=== PATIENT | female | born 1960 | race Caucasian/White ===

== ENCOUNTER 2016-11-15 17:49 | Emergency (ER) | payer MEDICARE ==
[~2016-11-15] VITALS: Ht 157.5 cm; Wt 79.4 kg
[2016-11-15 17:54] VITALS: BP 174/83
[2016-11-15] MEDS ORDERED: IBUPROFEN 600 MG TABLET. PO ONE (18:15)
--- NOTE | 2016-11-15 18:18 | PHYS DOC ---
Past Medical History Past Medical History: CHF, Diabetes-Type II, High Cholesterol, Hypertension, [place] Past Surgical History: Cholecystectomy, Coronary Bypass Surgery, Hysterectomy, Knee Replacement Alcohol Use: Rarely Drug Use: None Adult General Chief Complaint Chief Complaint: FOOT INJURY PAIN HPI HPI Patient is a 56 year old presents emergency department stating that she woke up this morning with her left foot hurting. Patient states she did not injury the foot. She states she has sharp pain with numbness and tingling. Patient is able to play with a good steady gait. She states that she has not taken anything for pain and discomfort. Review of Systems Review of Systems Constitutional: Denies fever or chills [] Eyes: Denies change in visual acuity, redness, or eye pain [] HENT: Denies nasal congestion or sore throat [] Respiratory: Denies cough or shortness of breath [] Cardiovascular: No additional information not addressed in HPI [] GI: Denies abdominal pain, nausea, vomiting, bloody stools or diarrhea [] : Denies dysuria or hematuria [] Musculoskeletal: Denies back pain. C/o left foot pain Integument: Denies rash or skin lesions [] Neurologic: Denies headache, focal weakness or sensory changes [] Current Medications Current Medications Current Medications Medications (Trade) Dose Ordered Sig/Gabi Start Time Stop Time Status Last Admin Dose Admin Ibuprofen (Motrin) 600 mg 1X ONCE 11/15/16 18:15 11/15/16 18:16 DC 11/15/16 18:12 600 MG Allergies Allergies Allergies Coded Allergies Type Severity Reaction Last Updated Verified Sulfa (Sulfonamide Antibiotics) Allergy Intermediate 01/06/16 Yes ciprofloxacin Allergy Intermediate 01/06/16 Yes nitrofurantoin Allergy Intermediate 01/06/16 Yes Physical Exam Physical Exam Constitutional: Well developed, well nourished, no acute distress, non-toxic appearance. [] HENT: Normocephalic, atraumatic, bilateral external ears normal, oropharynx moist, no oral exudates, nose normal. [] Eyes: PERRLA, EOMI, conjunctiva normal, no discharge. [] Neck: Normal range of motion, no tenderness, supple, no stridor. [] Cardiovascular:Heart rate regular rhythm, Lungs & Thorax: no respiratory distress Skin: Warm, dry, no erythema, no rash. [] Back: No tenderness Extremities: Distal left metatarsal tenderness, no cyanosis, no clubbing, ROM intact, no edema. No bruising or discoloration noted. Patient is able to move the toes without difficulty. Good sensation noted. Cap refill brisk less than 2 seconds. Slight swelling noted. Neurologic: Alert and oriented X 3, normal motor function, normal sensory function, no focal deficits noted. [] Psychologic: Affect normal, judgement normal, mood normal. [] Current Patient Data Vital Signs Vital Signs Date Time Temp Pulse Resp B/P Pulse Ox O2 Delivery O2 Flow Rate FiO2 11/15/16 17:54 97.9 93 18 95 Room Air 97.9 Lab Values Laboratory Tests Test 11/15/16 18:08 Uric Acid 7.7mg/dL (2.6-6.0) H EKG EKG [] Radiology/Procedures Radiology/Procedures [] Course & Med Decision Making Course & Med Decision Making Pertinent Labs and Imaging studies reviewed. (See chart for details) X-rays were negative for any bony abnormalities. Your uric acid was elevated at 7.7. Shins for nonsteroidal anti-inflammatories to help with pain and discomfort. Elevation as much as possible. Follow-up with your primary care physician in the next 5-7 days. Return back to emergency prior signs symptoms of become worse. [] Dragon Disclaimer Dragon Disclaimer This electronic medical record was generated, in whole or in part, using a voice recognition dictation system. Departure Departure Impression: Primary Impression: Foot pain Disposition: HOME, SELF-CARE Condition: STABLE Referrals: DOROTHY ALBERT (PCP) Patient Instructions: Foot Sprain-Brief, Gout, [id number] Additional Instructions: Activity as tolerated. Medications as prescribed. Elevation as much as possible. Follow-up through primary care physician next 5-7 days. Return back to emergency prior signs symptoms of become worse. Scripts Naproxen 500 Mg Tablet1 Tab PO TID #60 TAB Prov:ANETTE RAYGOZA APRN 11/15/16 ANETTE RAYGOZA APRN Nov 15, 2016 18:18
[2016-11-15] MEDS ORDERED: NAPR500T3 PO (19:11)
--- NOTE | 2016-11-16 08:09 | RAD ---
Indication plantar foot pain. No history of trauma. AP oblique and lateral views of the left foot were obtained. No acute or significant bony finding is seen.
== END 2016-11-15 19:19 | disposition home or self-care (01) ==
LOC: ER 17:49
DX: M79.672 Pain in left foot (principal); R22.42 Localized swelling, mass and lump, left lower limb; R20.0 Anesthesia of skin; R20.2 Paresthesia of skin; I11.0 Hypertensive heart disease with heart failure; I50.9 Heart failure, unspecified; E11.9 Type 2 diabetes mellitus without complications; E78.00 Pure hypercholesterolemia, unspecified; I25.2 Old myocardial infarction; Z96.659 Presence of unspecified artificial knee joint; Z95.1 Presence of aortocoronary bypass graft; Z88.1 Allergy status to other antibiotic agents; Z88.2 Allergy status to sulfonamides; Z88.8 Allergy status to other drugs, medicaments and biological substances
CPT/HCPCS: 36415; 73630; 84550; 99285-25

== ENCOUNTER 2016-12-10 17:53 | Emergency (ER) | payer MEDICARE ==
[~2016-12-10] VITALS: Ht 157.5 cm; Wt 86.2 kg
[~2016-12-10 17:53] MED LIST: NAPR500T3 PO
[2016-12-10] MEDS ORDERED: MECLIZINE HCL 12.5 MG TABLET. PO ONE (19:30)
--- NOTE | 2016-12-10 19:43 | PHYS DOC ---
Past Medical History Past Medical History: CHF, Diabetes-Type II, High Cholesterol, Hypertension, [place] Past Surgical History: Cholecystectomy, Coronary Bypass Surgery, Hysterectomy, Knee Replacement, Other Additional Past Surgical Histo: rhinoplasty Alcohol Use: Rarely Drug Use: None Adult General Chief Complaint Chief Complaint: MULTIPLE COMPLAINTS [facility] HPI Patient is a 56 year old female who presents with some intermittent mild to moderate dizziness, left ear discomfort/ringing at times, and popping in her neck for the past 2-3 weeks. She had the ear irrigated and was placed on some medicine for decongestant. Denies any nausea vomiting chest pain or shortness of breath. Denies any blurry vision at this time. Denies any previous history of stroke or headache injury. Review of Systems Review of Systems Constitutional: Denies fever or chills [] Eyes: Denies change in visual acuity, redness, or eye pain [] HENT: Denies nasal congestion or sore throat [] Respiratory: Denies cough or shortness of breath [] Cardiovascular: No additional information not addressed in HPI [] GI: Denies abdominal pain, nausea, vomiting, bloody stools or diarrhea [] : Denies dysuria or hematuria [] Musculoskeletal: Denies back pain or joint pain [] Integument: Denies rash or skin lesions [] Neurologic: Denies headache, focal weakness or sensory changes [] Endocrine: Denies polyuria or polydipsia [] All review systems are negative except noted in the history of present illness Current Medications Current Medications Current Medications Medications (Trade) Dose Ordered Sig/Gabi Start Time Stop Time Status Last Admin Dose Admin Info (Do NOT chart on this entry -- for MONITORING) 1 each PRN DAILY PRN 12/10/16 19:45 12/12/16 19:44 Iohexol (Omnipaque 300 Mg/ml) 55 ml 1X ONCE 12/10/16 19:45 12/10/16 19:46 DC 12/10/16 20:15 60 ML Meclizine HCl (Antivert) 25 mg 1X ONCE 12/10/16 19:30 12/10/16 19:31 DC 12/10/16 19:26 25 MG Allergies Allergies Allergies Coded Allergies Type Severity Reaction Last Updated Verified Sulfa (Sulfonamide Antibiotics) Allergy Intermediate 01/06/16 Yes ciprofloxacin Allergy Intermediate 01/06/16 Yes nitrofurantoin Allergy Intermediate 01/06/16 Yes Physical Exam Physical Exam Constitutional: Well developed, well nourished, no acute distress, non-toxic appearance. [] HENT: Normocephalic, atraumatic, bilateral external ears normal, oropharynx moist, no oral exudates, nose normal. [TMs are normal external auditory canals were normal without swollen] Eyes: PERRLA, EOMI, conjunctiva normal, no discharge. [No nystagmus] Neck: Normal range of motion, no tenderness, supple, no stridor. [No midline tenderness] Cardiovascular:Heart rate regular rhythm, no murmur [] Lungs & Thorax: Bilateral breath sounds clear to auscultation [] Abdomen: Bowel sounds normal, soft, no tenderness, no masses, no pulsatile masses. [] Skin: Warm, dry, no erythema, no rash. [] Back: No tenderness, no CVA tenderness. [] Extremities: No tenderness, no cyanosis, no clubbing, ROM intact, no edema. [] Neurologic: Alert and oriented X 3, normal motor function, normal sensory function, no focal deficits noted. [] Psychologic: Affect normal, judgement normal, mood normal. [] Current Patient Data Vital Signs Vital Signs Date Time Temp Pulse Resp B/P (MAP) Pulse Ox O2 Delivery O2 Flow Rate FiO2 12/10/16 19:44 68 16 134/65 (88) 94 Room Air 12/10/16 18:12 97.9 97.9 Lab Values Laboratory Tests Test 12/10/16 19:26 POC Hemoglobin 12.2 g/dL (12-15) POC Hematocrit 36 % (36-40) POC Sodium 140 mmol/L (135-145) POC Potassium 5.0 mmol/L (3.5-5.0) POC Chloride 103 mmol/L (98-110) POC Total CO2 29 mmol/L (23-32) Anion Gap 14 mmol/L (6-14) POC Blood Urea Nitrogen 49 mg/dL (8-26) H POC Creatinine 1.4 mg/dL (0.5-1.4) Glucose Level 151 mg/dL (70-99) H POC Ionized Calcium (Cecelia) 1.16 mmol/L (1.13-1.32) Laboratory Tests 12/10/16 19:26 EKG EKG Normal sinus rhythm rate of 67 STEMI QTC normal interpretation time 1930 by me [ ] Radiology/Procedures Radiology/Procedures CT scan head and neck no significant occlusion of the posterior circulation, no bleed no stroke. [] Course & Med Decision Making Course & Med Decision Making Pertinent Labs and Imaging studies reviewed. (See chart for details) Patient looks clinically very stable with minimal symptoms. We'll obtain a CTA of the head and neck to exclude any posterior circulation pathology. I-STAT was unremarkable creatinine 1.4 blood sugar 151 EKG was unremarkable. [Time 2018 hrs. patient's vertigo has resolved she is improved with the meclizine. Patient does have meclizine at home that she can take. The patient regarding follow-up with her PCP and she has an appointment for next week. Counseled regarding return symptoms such as stroke such as not being able swallow or speak gait instability and missed a one-sided body or facial droop.] Dragon Disclaimer Dragon Disclaimer This electronic medical record was generated, in whole or in part, using a voice recognition dictation system. Departure Departure Impression: Primary Impression: Vertigo Disposition: 01 HOME, SELF-CARE Condition: IMPROVED Referrals: DOROTHY ALBERT (PCP) VICKIE ROBERTS MD December 10, 2016 19:43
[2016-12-10] MEDS ORDERED: IOHEXOL 300 MG/ML 75 ML VIAL IV ONE (19:45)
[2016-12-10] MEDS ORDERED: CONTRAST GIVEN MC PRN (19:45)
--- NOTE | 2016-12-10 21:09 | RAD ---
CTA head and neck History: Vertigo, left head and neck pain Technique: After bolus of intravenous contrast, volumetric CT data acquisition was acquired of the head and neck. Multiplanar reconstruction images to include MIP and 3-D reconstruction images are submitted. Exposure: One or more of the following individualized dose reduction techniques were utilized for this examination: 1. Automated exposure control 2. Adjustment of the mA and/or kV according to patient size 3. Use of iterative reconstruction technique. Contrast: 60 cc Omnipaque 300 Comparison: None Any determination of stenosis is based on NASCET criteria. CTA head: Findings: There is motion degradation.Both intradural vertebral arteries constitute the basilar artery, slightly dominant right vertebral artery. There is visualization of left PICA, not seen on the right. There is visualization of bilateral AICAs. There is visualization of bilateral superior cerebellar arteries. There is small caliber left posterior communicating artery, questionable tiny right posterior communicating artery difficult to visualize in its entirety. There is visualization of the petrous, cavernous, and supraclinoid internal carotid arteries bilaterally. There is likely small anterior communicating artery. There is normal contrast-enhancement of segments of the superior sagittal sinus, as well as bilateral transverse and sigmoid sinuses. No aneurysm or arteriovenous malformation is identified. Impression: 1. Exam is degraded by motion. Right PICA is not visualized, uncertain chronicity. No significant intracranial stenosis or aneurysm identified. If there is suspicion for recent infarct, MRI evaluation could be beneficial. Neck CTA: Findings: There is motion degradation. There are normal anatomic origins of the great vessels. There is some calcified plaque near the origins of the brachiocephalic and left subclavian arteries without significant focal stenosis. Proximal left vertebral artery is tortuous. Right vertebral artery is dominant throughout its course. No significant stenosis is identified in the cervical vasculature. No significant dissection flap is identified in the cerebral vasculature. There is medial deviation of the carotid arteries in the neck bilaterally involving the distal common carotid arteries as well as the carotid bifurcations and proximal internal carotid arteries into the retropharyngeal region, in close opposition at the C2-3 level. Mastoid air cells are aerated. Paranasal sinuses are overall aerated. There is more advanced degenerative disc the C4-5, mild spondylosis at this level. There is likely mild spinal stenosis C4-5. There is cervical uncovertebral degenerative change greatest C4-5, also facet degenerative change greatest on the right at C5-C6. There is no significant abnormality of the limited visualized lung apices. There are multiple small nonspecific nodes in the bilateral neck. Impression: 1. Exam is degraded by motion, no significant stenosis or dissection flap identified of the cervical arterial vasculature. There is medial deviation of the carotid arteries in the neck into the retropharyngeal region, in close opposition at the C2-3 level. 2. There is degenerative disc disease and spondylosis greatest at C4-5. Electronically signed by: Rik Roman MD (12/10/2016 9:05 PM)
[2016-12-10 22:14] VITALS: BP 158/70
--- NOTE | 2016-12-11 07:23 | EKG ---
[facility] [address] [place] [address] Test Date: 2016-12-10 Test Time: 19:27:55 Pat Name: OMAR THAYER Department: Room: Gender: F Manager Performance: : 1960 Requested By: VICKIE ROBERTS Order Number: [id number] Reading MD: Measurements Intervals [place] Rate: 67 P: 36 SC: 174 QRS: -30 QRSD: 150 T: 42 QT: 458 QTc: 487 Interpretive Statements SINUS RHYTHM ABNORMAL LEFT AXIS DEVIATION NON SPECIFIC INTRAVENTRICULAR BLOCK QRS(T) CONTOUR ABNORMALITY CONSIDER ANTEROSEPTAL MYOCARDIAL DAMAGE RI6.01 Unconfirmed report No previous ECG available for comparison
== END 2016-12-10 22:49 | disposition home or self-care (01) ==
LOC: ER 17:53
DX: R42 Dizziness and giddiness (principal); I25.2 Old myocardial infarction; E78.00 Pure hypercholesterolemia, unspecified; E11.9 Type 2 diabetes mellitus without complications; I11.0 Hypertensive heart disease with heart failure; I50.9 Heart failure, unspecified; Z95.1 Presence of aortocoronary bypass graft; Z88.1 Allergy status to other antibiotic agents; Z88.2 Allergy status to sulfonamides; Z88.8 Allergy status to other drugs, medicaments and biological substances
CPT/HCPCS: 70496; 70498; 80047; 93005; 99284; J8597; Q9967

== ENCOUNTER 2019-09-05 18:32 | Emergency (ER) | payer MEDICARE, MEDICAID ==
[2017-10-30 11:00] VITALS: BP 124/70
[~2019-09-05 18:32] MED LIST changes: +ALBU2.5V8 INH; +ALPR1TAB6 PO; +AMIT100T PO; +AMIT25TA PO; +AMLO10TA8 PO; +ATOR40TA59 PO; +BUPR300T92 PO; +CARV12.511 PO; +CEPH500C PO; +CYAN-25 PO; +GABA300C18 PO; +LIDO35.4 TOP; +LIDOCAINE OINTMENT; +LINA5TAB PO; +NAPR-514 PO; -NAPR500T3 PO; +NAPR500T8 PO; +POTA20TA4 PO; +RIVA15TA PO; +SERT100T8 PO; +TEMA30CA PO; +TORS20TA2 PO; +TRAM1TAB4 PO; +VALS320T13 PO
== END 2019-09-05 19:50 | disposition left against medical advice (07) ==
LOC: ER 18:32
DX: R06.02 Shortness of breath (principal); Z53.21 Procedure and treatment not carried out due to patient leaving prior to being seen by health care provider

== ENCOUNTER 2019-11-26 10:37 | Emergency (ER) | payer MEDICARE, MEDICAID ==
[~2019-11-26] VITALS: Ht 160 cm; Wt 70.0 kg
[2019-11-26 10:52] VITALS: BP 157/81
--- NOTE | 2019-11-26 10:58 | PHYS DOC ---
Past Medical History Past Medical History: CHF, Diabetes-Type II, High Cholesterol, Hypertension, [place], Other Additional Past Medical Histor: ARRHYTHMIA Past Surgical History: Angioplasty, Cholecystectomy, Coronary Bypass Surgery, Hysterectomy, Knee Replacement, Other Additional Past Surgical Histo: rhinoplasty Smoking Status: Former Smoker Alcohol Use: Rarely Drug Use: None General Adult EDM: Chief Complaint: ALLERGIC REACTION HPI: HPI: Patient is a 59-year-old female who presents with concern over an allergic reaction. She states this morning she felt like her lower lip and tongue started to swell. She took a hydroxyzine at home and it has resolved. She denies starting any new medicines eating any different foods or spicy foods. Currently, she states she is symptom-free. [] Review of Systems: Review of Systems: Constitutional: Denies fever or chills. [] Eyes: Denies change in visual acuity. [] HENT: Per HPI. [] Respiratory: Denies cough or shortness of breath. [] Cardiovascular: Denies chest pain or edema. [] GI: Denies abdominal pain, nausea, vomiting, bloody stools or diarrhea. [] : Denies dysuria. [] Musculoskeletal: Denies back pain or joint pain. [] Integument: Denies rash. [] Neurologic: Denies headache, focal weakness or sensory changes. [] Endocrine: Denies polyuria or polydipsia. [] Lymphatic: Denies swollen glands. [] Psychiatric: Denies depression or anxiety. [] Heart Score: Risk Factors: Risk Factors: DM, Current or recent (<one month) smoker, HTN, HLP, family history of CAD, obesity. Risk Scores: Score 0 - 3: 2.5% MACE over next 6 weeks - Discharge Home Score 4 - 6: 20.3% MACE over next 6 weeks - Admit for Clinical Observation Score 7 - 10: 72.7% MACE over next 6 weeks - Early Invasive Strategies Allergies: Allergies: Allergies Coded Allergies Type Severity Reaction Last Updated Verified Sulfa (Sulfonamide Antibiotics) Allergy Intermediate 01/06/16 Yes ciprofloxacin Allergy Intermediate 01/06/16 Yes nitrofurantoin Allergy Intermediate 01/06/16 Yes Physical Exam: PE: Constitutional: Well developed, well nourished, no acute distress, non-toxic appearance. [] HENT: Normocephalic, atraumatic, bilateral external ears normal, oropharynx moist, no oral exudates, nose normal. [] Eyes: PERRLA, EOMI, conjunctiva normal, no discharge. [] Neck: Normal range of motion, no tenderness, supple, no stridor. [] Cardiovascular:Heart rate regular rhythm, no murmur [] Lungs & Thorax: Bilateral breath sounds clear to auscultation [] Abdomen: Bowel sounds normal, soft, no tenderness, no masses, no pulsatile masses. [] Skin: Warm, dry, no erythema, no rash. [] Back: No tenderness, no CVA tenderness. [] Extremities: No tenderness, no cyanosis, no clubbing, ROM intact, no edema. [] Neurologic: Alert and oriented X 3, normal motor function, normal sensory function, no focal deficits noted. [] Psychologic: Affect normal, judgement normal, mood normal. [] EKG: EKG: [] Radiology/Procedures: Radiology/Procedures: [] Course & Med Decision Making: Course & Med Decision Making Pertinent Labs and Imaging studies reviewed. (See chart for details) [] Dragon Disclaimer: Dragon Disclaimer: This electronic medical record was generated, in whole or in part, using a voice recognition dictation system. Departure Departure Impression: Primary Impression: Allergic reaction Qualified Codes: T78.40XA - Allergy, unspecified, initial encounter Disposition: 01 HOME, SELF-CARE Condition: STABLE Referrals: ANYA HAYES MD (PCP) Patient Instructions: Allergies, Generic Additional Instructions: Continue taking her hydroxyzine every 4-6 hours as needed. Return to the emergency department, as we discussed, if swelling of your lip or tongue returns TIGRE REDMAN DO November 26, 2019 10:58
== END 2019-11-26 11:12 | disposition home or self-care (01) ==
LOC: ER 10:37
DX: T78.49XA Other allergy, initial encounter (principal); I11.0 Hypertensive heart disease with heart failure; I50.9 Heart failure, unspecified; E11.9 Type 2 diabetes mellitus without complications; E78.00 Pure hypercholesterolemia, unspecified; I25.2 Old myocardial infarction; Z90.89 Acquired absence of other organs; Z90.49 Acquired absence of other specified parts of digestive tract; Z90.710 Acquired absence of both cervix and uterus; Z87.891 Personal history of nicotine dependence; Z88.2 Allergy status to sulfonamides; Z88.1 Allergy status to other antibiotic agents; Z88.8 Allergy status to other drugs, medicaments and biological substances; X58.XXXA Exposure to other specified factors, initial encounter
CPT/HCPCS: 99282

== ENCOUNTER 2020-09-18 13:46 | Emergency (ER) | payer MEDICARE, MEDICAID ==
[~2020-09-18] VITALS: Ht 157.5 cm; Wt 90.0 kg
[~2020-09-18 13:46] MED LIST changes: +AMLO-187 PO; -AMLO10TA8 PO; +SERT-268 PO; -SERT100T8 PO
[2020-09-18 14:00] VITALS: BP 163/80
--- NOTE | 2020-09-18 14:10 | PHYS DOC ---
Past Medical History Past Medical History: Anxiety, CHF, Diabetes-Type II, High Cholesterol, H ypertension, ND, Other Additional Past Medical Histor: ARRYTHMIA, GOUT Past Surgical History: Angioplasty, Cholecystectomy, Coronary Bypass Surgery, Hysterectomy, Knee Replacement, Other Additional Past Surgical Histo: rhinoplasty Smoking Status: Former Smoker Alcohol Use: Rarely Drug Use: None General Adult EDM: Chief Complaint: ABDOMINAL PAIN HPI: HPI: Patient is a 59 year old female who presented to ER for evaluation of right lower abdominal pain started yesterday. Patient denies any cough or fever, no nausea vomiting. Patient denies any diarrhea. The pain is worse with palpation or walking. Patient denies any urinary symptom, no blood in her urine. Review of Systems: Review of Systems: Constitutional: Denies fever or chills. [] Eyes: Denies change in visual acuity. [] HENT: Denies nasal congestion or sore throat. [] Respiratory: Denies cough or shortness of breath. [] Cardiovascular: Denies chest pain or edema. [] GI: Positive for right lower abdominal pain, no nausea vomiting, no diarrhea. : Denies dysuria. [] Musculoskeletal: Denies back pain or joint pain. [] Integument: Denies rash. [] Neurologic: Denies headache, focal weakness or sensory changes. [] Endocrine: Denies polyuria or polydipsia. [] Lymphatic: Denies swollen glands. [] Psychiatric: Denies depression or anxiety. [] Heart Score: Risk Factors: Risk Factors: DM, Current or recent (<one month) smoker, HTN, HLP, family history of CAD, obesity. Risk Scores: Score 0 - 3: 2.5% MACE over next 6 weeks - Discharge Home Score 4 - 6: 20.3% MACE over next 6 weeks - Admit for Clinical Observation Score 7 - 10: 72.7% MACE over next 6 weeks - Early Invasive Strategies Allergies: Allergies: Allergies Coded Allergies Type Severity Reaction Last Updated Verified Sulfa (Sulfonamide Antibiotics) Allergy Intermediate 01/06/16 Yes ciprofloxacin Allergy Intermediate 01/06/16 Yes hydrocodone Allergy Intermediate Itching 11/26/19 Yes nitrofurantoin Allergy Intermediate 01/06/16 Yes oxycodone Allergy Intermediate Itching 11/26/19 Yes Insulins Allergy Unknown 11/26/19 Yes Physical Exam: PE: Constitutional: Well developed, well nourished, no acute distress, non-toxic appearance. [] HENT: Normocephalic, atraumatic, bilateral external ears normal, oropharynx moist, no oral exudates, nose normal. [] Eyes: PERRLA, EOMI, conjunctiva normal, no discharge. [] Neck: Normal range of motion, no tenderness, supple, no stridor. [] Cardiovascular:Heart rate regular rhythm, no murmur [] Lungs & Thorax: Bilateral breath sounds clear to auscultation [] Abdomen: Bowel sounds normal, soft, There is RLQ tenderness TO PALPATION, no masses, no pulsatile masses. [] Skin: Warm, dry, no erythema, no rash. [] Back: No tenderness, no CVA tenderness. [] Extremities: No tenderness, no cyanosis, no clubbing, ROM intact, no edema. [] Neurologic: Alert and oriented X 3, normal motor function, normal sensory function, no focal deficits noted. [] Psychologic: Affect normal, judgement normal, mood normal. [] Current Patient Data: Labs: Laboratory Tests Test 09/18/20 14:25 09/18/20 14:45 Urine Collection Type Unknown Urine Color Yellow Urine Clarity Clear Urine pH 6.0 Urine Specific [place] 1.015 Urine Protein Negative mg/dL Urine Glucose (UA) Negative mg/dL Urine Ketones (Stick) Negative mg/dL Urine Blood Negative Urine Nitrite Negative Urine Bilirubin Negative Urine Urobilinogen Dipstick 0.2 mg/dL Urine Leukocyte Esterase Small Urine RBC Rare /HPF Urine WBC 11-20 /HPF Urine Squamous Epithelial Cells Few /LPF Urine Bacteria Few /HPF Urine Hyaline Casts Few /HPF Urine Granular Casts Few /HPF White Blood Count 13.6 x10^3/uL Red Blood Count 4.22 x10^6/uL Hemoglobin 13.8 g/dL Hematocrit 41.6 % Mean Corpuscular Volume 99 fL Mean Corpuscular Hemoglobin 33 pg Mean Corpuscular Hemoglobin Concent 33 g/dL Red Cell Distribution Width 14.2 % Platelet Count 263 x10^3/uL Neutrophils (%) (Auto) 67 % Lymphocytes (%) (Auto) 22 % Monocytes (%) (Auto) 7 % Eosinophils (%) (Auto) 3 % Basophils (%) (Auto) 1 % Neutrophils # (Auto) 9.2 x10^3/uL Lymphocytes # (Auto) 3.0 x10^3/uL Monocytes # (Auto) 0.9 x10^3/uL Eosinophils # (Auto) 0.4 x10^3/uL Basophils # (Auto) 0.1 x10^3/uL Platelet Estimate Adequate Platelet Clumps, EDTA Present Sodium Level 142 mmol/L Potassium Level 4.4 mmol/L Chloride Level 104 mmol/L Carbon Dioxide Level 29 mmol/L Anion Gap 9 Blood Urea Nitrogen 24 mg/dL Creatinine 1.5 mg/dL Estimated GFR (Cockcroft-Gault) 35.3 BUN/Creatinine Ratio 16 Glucose Level 71 mg/dL Calcium Level 8.9 mg/dL Total Bilirubin 0.3 mg/dL Aspartate Amino Transf (AST/SGOT) 26 U/L Alanine Aminotransferase (ALT/SGPT) 26 U/L Alkaline Phosphatase 167 U/L Total Protein 6.9 g/dL Albumin 3.5 g/dL Albumin/Globulin Ratio 1.0 Lipase 118 U/L Current Medications Medications (Trade) Dose Ordered Sig/Gabi Route PRN Reason Start Time Stop Time Status Last Admin Dose Admin Piperacillin Sod/ Tazobactam Sod 3.375 gm/Sodium Chloride 50 ml @ 100 mls/hr 1X ONCE IV 09/18/20 15:30 09/18/20 15:59 DC EKG: EKG: [] Radiology/Procedures: Radiology/Procedures: [][facility] [address] [place] [address] IMAGING REPORT Signed PATIENT: OMAR THAYER ACCOUNT: [id number] : 1960 LOCATION: ER AGE: 59 SEX: F EXAM STATUS: REG ER ORD. PHYSICIAN: ROBERT BABB DO REASON: RLQ abdominal pain PROCEDURE: CT ABDOMEN PELVIS WO CONTRAST Exam: CT of abdomen and pelvis without contrast INDICATION: Right lower quadrant abdominal pain TECHNIQUE: Sequential axial images through the abdomen and pelvis obtained without IV contrast. Sagittal and coronal reformatted images were reconstructed from the axial data and reviewed. Comparisons: None FINDINGS: Heart size is normal. Pacer leads noted pleural effusion. Visualized lung bases are clear. No pleural effusion. Liver, spleen, pancreas and adrenals are unremarkable. Gallbladder surgically absent. No perinephric inflammation or hydronephrosis. No renal or ureteral calculi are identified. Bladder is partially distended and appears thin-walled. Uterus is absent. No abnormal adnexal mass. Diverticulosis is noted at the sigmoid colon without evidence of acute diverticulitis. Remainder of the large and small bowel are unremarkable. Appen warren is normal. No free intra-abdominal air or fluid. No obstruction. Abdominal aorta has a normal course and caliber. No enlarged intra-abdominal lymph nodes are identified. No suspicious osseous lesions or acute fractures. IMPRESSION: 1. No acute process identified within the abdomen or pelvis. Normal appendix. 2. Diverticulosis without evidence of acute diverticulitis. Exposure: One or more of the following in the visualized dose reduction techniques were utilized for this examination: 1. Automated exposure control 2. Adjustment of the MA and/or KV according to patient size 3. Use of iterative of reconstructive technique Electronically signed by: Sola Faith MD (09/18/2020 4:05 PM) LOCATED WITHIN [facility] DICTATED and SIGNED BY: SOLA FAITH MD DATE: 09/18/20 [id number] 0 Course & Med Decision Making: Course & Med Decision Making Pertinent Labs and Imaging studies reviewed. (See chart for details) Patient is a 59-year-old female who presented to ER for evaluation of right abdominal pain, CT scan showed normal appendix, her urine showed that she had a urinary tract infection. Patient will be discharged home with antibiotic. Dragon Disclaimer: Draglinnette Disclaimer: This electronic medical record was generated, in whole or in part, using a voice recognition dictation system. Departure Departure Impression: Primary Impression: UTI (urinary tract infection) Additional Impression: Abdominal pain Disposition: 01 DC HOME SELF CARE/HOMELESS Condition: STABLE Referrals: ANYA AHYES MD (PCP) FOLLOW UP WITH YOUR DOCTOR THIS WEEK FOR REEVALUATION Patient Instructions: Abdominal Pain, Urinary Tract Infection Additional Instructions: Thank you for visiting our Emergency Department. We appreciate you trusting us with your care. If any additional problems come up don't hesitate to return to visit us. Please follow up with your primary care provider so they can plan additional care if needed and know about the problem that you had. If symptoms worsen come back to the Emergency Department. Any concerning symptoms that start such as chest pain, shortness of air, weakness or numbness on one side of the body, running high fevers or any other concerning symptoms return to the ER. Scripts Cefpodoxime Proxetil (CEFPODOXIME PROXETIL) 200 Mg Tablet 1 TAB PO BID, #14 TAB Prov: ROBERT BABB DO 09/18/20 ROBERT BABB DO Sep 18, 2020 14:09
[2020-09-18 14:39] LABS: BILIRUBIN,URINE NEGATIVE (NEG); CLARITY,URINE CLEAR; COLOR,URINE YELLOW; NITRITE,URINE NEGATIVE (NEG); PROTEIN,URINE NEGATIVE (NEG-TRACE); UROBILINOGEN,URINE 0.2 mg/dL (0.2 mg/dL)
[2020-09-18 14:48] LABS: RBC,URINE RARE /HPF (0-2)
[2020-09-18 14:49] LABS: BACTERIA,URINE FEW /HPF (0-FEW); GRANULAR CASTS,URINE FEW /HPF; HYALINE CASTS, URINE FEW /HPF
[2020-09-18 15:02] LABS: BASO # 0.1 x10^3/uL (0.0-0.2); BASO % 1 % (0-3); EOS # 0.4 x10^3/uL (0.0-0.7); EOS % 3 % (0-3); HEMATOCRIT 41.6 % (36.0-47.0); HEMOGLOBIN 13.8 g/dL (12.0-15.5); LYMPH % 22 % (24-48); MEAN CORPUSCULAR HEMOGLOBIN 33 pg (25-35); MEAN CORPUSCULAR HGB CONC 33 g/dL (31-37); MEAN CORPUSCULAR VOLUME 99 fL (79-100); MONO # 0.9 x10^3/uL (0.0-1.1); MONO % 7 % (0-9); NEUT # 9.2 x10^3/uL (1.8-7.7); NEUT % 67 % (31-73); PLATELET COUNT 263 x10^3/uL (140-400); RED BLOOD COUNT 4.22 x10^6/uL (3.50-5.40); RED CELL DISTRIBUTION WIDTH 14.2 % (11.5-14.5); WHITE BLOOD COUNT 13.6 x10^3/uL (4.0-11.0)
[2020-09-18 15:07] LABS: CALCIUM 8.9 mg/dL (8.5-10.1); CREATININE 1.5 mg/dL (0.6-1.0); GFR 35.3; POTASSIUM 4.4 mmol/L (3.5-5.1)
[2020-09-18 15:12] LABS: ALBUMIN 3.5 g/dL (3.4-5.0); TOTAL BILIRUBIN 0.3 mg/dL (0.2-1.0); TOTAL PROTEIN 6.9 g/dL (6.4-8.2)
[2020-09-18 15:25] LABS: PLATELET CLUMP PRESENT; PLT ESTIMATE ADEQUATE (ADEQUATE)
[2020-09-18] MEDS ORDERED: PIPERACILLIN/TAZOBACTAM 3.375 GM in IV NORMAL SALINE 50ML 50 ML IV ONE (15:30)
--- NOTE | 2020-09-18 16:08 | RAD ---
Exam: CT of abdomen and pelvis without contrast INDICATION: Right lower quadrant abdominal pain TECHNIQUE: Sequential axial images through the abdomen and pelvis obtained without IV contrast. Sagit yulia and coronal reformatted images were reconstructed from the axial data and reviewed. Comparisons: None FINDINGS: Heart size is normal. Pacer leads noted pleural effusion. Visualized lung bases are clear. No pleural effusion. Liver, spleen, pancreas and adrenals are unremarkable. Gallbladder surgically absent. No perinephric inflammation or hydronephrosis. No renal or ureteral calculi are identified. Bladder is partially distended and appears thin-walled. Uterus is absent. No abnormal adnexal mass. Diverticulosis is noted at the sigmoid colon without evidence of acute diverticulitis. Remainder of t he large and small bowel are unremarkable. Appendix is normal. No free intra-abdominal air or fluid. No obstruction. Abdominal aorta has a normal course and caliber. No enlarged intra-abdominal lymph nodes are identified. No suspicious osseous lesions or acute fractures. IMPRESSION: 1. No acute process identified within the abdomen or pelvis. Normal appendix. 2. Diverticulosis without evidence of acute diverticulitis. Exposure: One or more of the following in the visualized dose reduction techniques were utilized for this examination: 1. Automated exposure control 2. Adjustment of the MA and/or KV according to patient size 3. Use of iterative of reconstructive technique Electronically signed by: Sola Rodríguez MD (09/18/2020 4:05 PM) [facility]
[2020-09-18] MEDS ORDERED: CEFP200T PO (17:05)
== END 2020-09-18 18:15 | disposition home or self-care (01) ==
LOC: ER 13:46
DX: N39.0 Urinary tract infection, site not specified (principal); R10.31 Right lower quadrant pain; F41.9 Anxiety disorder, unspecified; I11.0 Hypertensive heart disease with heart failure; I50.9 Heart failure, unspecified; E11.9 Type 2 diabetes mellitus without complications; E78.00 Pure hypercholesterolemia, unspecified; I25.2 Old myocardial infarction; Z87.891 Personal history of nicotine dependence; Z90.49 Acquired absence of other specified parts of digestive tract; Z90.710 Acquired absence of both cervix and uterus; Z90.89 Acquired absence of other organs; Z98.890 Other specified postprocedural states; Z88.2 Allergy status to sulfonamides; Z88.5 Allergy status to narcotic agent; Z88.1 Allergy status to other antibiotic agents; Z88.8 Allergy status to other drugs, medicaments and biological substances
CPT/HCPCS: 36415; 74176; 80053; 81001; 83690; 85025; 87086; 96365; 99284; J2543

== ENCOUNTER → 2021-04-16 | Outpatient (CLI) | payer MEDICARE, MEDICAID ==
[2021-03-21 11:00] VITALS: BP 139/60
[~2021-04-16] MED LIST changes: +ALLO100T PO; +AMLO-186 PO; +BUDE0.5A NEB; +CARV6.2511 PO; +CEFP200T PO; +CHOL10004 PO; +FLUO10CA15 PO; +FLUT1DIS3 IH; +INSU100I17 SQ; +INSU100V13 SQ; +IOHEXOL 300 MG/ML 100ML VIAL. IV ONE; +LISI-517 PO; +MAGN250T2 PO; +NITR0.4T24 SL; +POTA-121 PO; -POTA20TA4 PO
--- NOTE | 2021-04-16 15:23 | KCIC ---
Study: CT CHEST WITH CONTRAST - PULMONARY ANGIOGRAM History: Dyspnea, history of PE Comparison: Chest radiograph 03/19/2021 Technique: Helical CT of the chest performed after the administration of 100 mL Omnipaque 300 intrav enous contrast and timed for angiographic evaluation of the pulmonary arteries per PE protocol. Coron al and sagittal 3D MIP reformations were obtained. One or more of the following individualized dose reduction techniques were utilized for this examinat ion: 1. Automated exposure control 2. Adjustment of the mA and/or kV according to patient size 3. Use of iterative reconstruction technique. Findings: Pulmonary Arteries: Contrast bolus is adequate. There is no acute pulmonary embolism. Heart/Systemic Vasculature: The heart is normal in size. No pericardial effusion. There is a pacemake r/AICD. The thoracic aorta is normal in caliber. Mild atherosclerosis at the great vessel origins. No aortic dissection. Mediastinum: No mediastinal or hilar lymphadenopathy. Lungs: The lungs are clear. No pleural effusion or pneumothorax. Central airways are clear. Neck/Axilla/Body Wall: No axillary lymphadenopathy. There is a 4 mm nodule in the upper outer right b reast (image 142, series 6). Upper Abdomen: Surgical changes of cholecystectomy. Bones: No acute osseous abnormality. IMPRESSION: 1. No acute pulmonary embolism. 2. 4 mm nodule in the upper outer right breast. Correlate with mammography. Electronically signed by: Avelina Peters MD (04/16/2021 3:21 PM) [id number]
== END ==
LOC: KCIC CT 14:34
PROVIDERS: ATTEND Student in an Organized Health Care Education/Training Program
DX: R06.00 Dyspnea, unspecified (principal); N63.11 Unspecified lump in the right breast, upper outer quadrant; Z90.49 Acquired absence of other specified parts of digestive tract
CPT/HCPCS: 71275; Q9967

== ENCOUNTER 2021-04-26 22:13 | Emergency (ER) | payer MEDICARE, MEDICAID ==
[~2021-04-26] VITALS: Ht 162.6 cm; Wt 93.0 kg
[~2021-04-26 22:13] MED LIST changes: -IOHEXOL 300 MG/ML 100ML VIAL. IV ONE
[2021-04-27 01:43] LABS: BILIRUBIN,URINE NEGATIVE (NEG); CLARITY,URINE CLEAR; COLOR,URINE YELLOW; NITRITE,URINE NEGATIVE (NEG); PH,URINE 5.5 (<5.0-8.0); PROTEIN,URINE NEGATIVE (NEG-TRACE); UROBILINOGEN,URINE 0.2 mg/dL (0.2 mg/dL)
[2021-04-27 01:53] LABS: BACTERIA,URINE 0 /HPF (0-FEW); HYALINE CASTS, URINE FEW /HPF; RBC,URINE OCC /HPF (0-2)
[2021-04-27 04:24] LABS: BASO # 0.1 x10^3/uL (0.0-0.2); BASO % 1 % (0-3); EOS # 0.4 x10^3/uL (0.0-0.7); EOS % 3 % (0-3); HEMATOCRIT 39.5 % (36.0-47.0); HEMOGLOBIN 13.4 g/dL (12.0-15.5); LYMPH # 2.8 x10^3/uL (1.0-4.8); LYMPH % 21 % (24-48); MEAN CORPUSCULAR HEMOGLOBIN 33 pg (25-35); MEAN CORPUSCULAR HGB CONC 34 g/dL (31-37); MEAN CORPUSCULAR VOLUME 97 fL (79-100); MONO # 1.1 x10^3/uL (0.0-1.1); MONO % 8 % (0-9); NEUT # 9.3 x10^3/uL (1.8-7.7); NEUT % 68 % (31-73); PLATELET COUNT 231 x10^3/uL (140-400); RED BLOOD COUNT 4.07 x10^6/uL (3.50-5.40); RED CELL DISTRIBUTION WIDTH 13.5 % (11.5-14.5); WHITE BLOOD COUNT 13.8 x10^3/uL (4.0-11.0)
[2021-04-27 04:33] LABS: CALCIUM 9.2 mg/dL (8.5-10.1); CREATININE 1.3 mg/dL (0.6-1.0); GFR 41.5
[2021-04-27 04:39] LABS: ALBUMIN 3.4 g/dL (3.4-5.0); ALBUMIN/GLOBULIN RATIO 0.9 (1.0-1.7); TOTAL BILIRUBIN 0.4 mg/dL (0.2-1.0); TOTAL PROTEIN 7.3 g/dL (6.4-8.2)
--- NOTE | 2021-04-27 04:59 | PHYS DOC ---
Past Medical History Past Medical History: Anxiety, CHF, Diabetes-Type II, High Cholesterol, Hypertension, DC, Other Additional Past Medical Histor: ARRYTHMIA, GOUT Past Surgical History: Cholecystectomy, Other Additional Past Surgical Histo: pacemaker Smoking Status: Former Smoker Alcohol Use: None Drug Use: None General Adult EDM: Chief Complaint: PAIN ON URINATION HPI: HPI: Patient is a 60 year old female who presents with report of suprapubic di scomfort. Symptoms began this evening, and she reports that she feels that she hasn't been able to fully evacuate her bladder for about 6 hours. She denies other urinary symptoms. She denies LLQ or RLQ pain. She denies n/v, anorexia, fever, chills, bowel habit changes. She denies anorexia. She takes Gabapentin daily for neuropathy and pain, but she denies any recent changes to this medication regimen. She denies opiate medication. She denies taking antihistamine medications. She was able to void her bladder shortly after arrival, and she is already feeling better. Review of Systems: Review of Systems: Constitutional: Denies fever or chills. [] Respiratory: Denies cough or shortness of breath. [] Cardiovascular: Denies chest pain or edema. [] GI: Suprapubic abdominal pain, denies nausea, vomiting, bloody stools or diarrhea. [] : Urinary retention, urgency symptoms. Denies dysuria, gross hematuria or incontinence. Musculoskeletal: Denies back pain or joint pain. [] Integument: Denies rash. [] Neurologic: Denies headache, focal weakness or sensory changes. [] Endocrine: Denies polyuria or polydipsia. [] Lymphatic: Denies swollen glands. [] Psychiatric: Denies depression or anxiety. [] Heart Score: C/O Chest Pain: No Risk Factors: Risk Factors: DM, Current or recent (<one month) smoker, HTN, HLP, family history of CAD, obesity. Risk Scores: Score 0 - 3: 2.5% MACE over next 6 weeks - Discharge Home Score 4 - 6: 20.3% MACE over next 6 weeks - Admit for Clinical Observation Score 7 - 10: 72.7% MACE over next 6 weeks - Early Invasive Strategies Allergies: Allergies: Allergies Coded Allergies Type Severity Reaction Last Updated Verified Sulfa (Sulfonamide Antibiotics) Allergy Intermediate 03/19/21 Yes ciprofloxacin Allergy Intermediate 03/19/21 Yes insulin degludec Allergy Intermediate Itching 03/19/21 Yes insulin glargine Allergy Intermediate Itching 03/20/21 Yes insulin lispro Allergy Intermediate Itching 03/19/21 Yes insulin lispro protamine Allergy Intermediate Itching 03/19/21 Yes dapagliflozin Allergy Unknown 03/20/21 Yes nitrofurantoin Allergy Unknown 03/20/21 Yes spironolactone Allergy Unknown 03/20/21 Yes warfarin Allergy Unknown swelling 03/20/21 Yes budesonide Adverse Reaction Intermediate Unknown 03/21/21 Yes Physical Exam: PE: Constitutional: Well developed, well nourished, no acute distress, non-toxic appearance. [] HENT: Normocephalic, atraumatic, bilateral external ears normal, oropharynx moist, no oral exudates, nose normal. [] Eyes: PERRL, sclera nonicteric no discharge. [] Neck: Normal range of motion, no tenderness, supple, no stridor. [] Cardiovascular:Heart rate regular rhythm, +2 radial and posterior tibial pulses bilaterally. Lungs & Thorax: Bilateral breath sounds clear to auscultation [] Abdomen: Abdomen is obese, soft, nondistended, normal bowel sounds. Minimal suprapubic tenderness to palpation. No right lower quadrant or left lower quadrant tenderness. No guarding, no rebound, no CVA tenderness. Skin: Warm, dry, no erythema, no rash. [] Back: No tenderness, no CVA tenderness. [] Extremities: No tenderness, no cyanosis, no clubbing, ROM intact, no edema. [] Neurologic: Alert and oriented X 3, normal motor function, normal sensory function, no focal deficits noted. [] Psychologic: Mildly anxious but pleasant and cooperative. [] Current Patient Data: Labs: Laboratory Tests Test 04/27/21 01:30 04/27/21 04:17 Urine Collection Type Unknown Urine Color Yellow Urine Clarity Clear Urine pH 5.5 (<5.0-8.0) Urine Specific [place] <=1.005 (1.000-1.030) Urine Protein Negative mg/dL (NEG-TRACE) Urine Glucose (UA) Negative mg/dL (NEG) Urine Ketones (Stick) Negative mg/dL (NEG) Urine Blood Negative (NEG) Urine Nitrite Negative (NEG) Urine Bilirubin Negative (NEG) Urine Urobilinogen Dipstick 0.2 mg/dL (0.2 mg/dL) Urine Leukocyte Esterase Negative (NEG) Urine RBC Occ /HPF (0-2) Urine WBC 1-4 /HPF (0-4) Urine Squamous Epithelial Cells Mod /LPF Urine Bacteria 0 /HPF (0-FEW) Urine Hyaline Casts Few /HPF Urine Mucus Slight /LPF White Blood Count 13.8 x10^3/uL (4.0-11.0) H Red Blood Count 4.07 x10^6/uL (3.50-5.40) Hemoglobin 13.4 g/dL (12.0-15.5) Hematocrit 39.5 % (36.0-47.0) Mean Corpuscular Volume 97 fL (79-100) Mean Corpuscular Hemoglobin 33 pg (25-35) Mean Corpuscular Hemoglobin Concent 34 g/dL (31-37) Red Cell Distribution Width 13.5 % (11.5-14.5) Platelet Count 231 x10^3/uL (140-400) Neutrophils (%) (Auto) 68 % (31-73) Lymphocytes (%) (Auto) 21 % (24-48) L Monocytes (%) (Auto) 8 % (0-9) Eosinophils (%) (Auto) 3 % (0-3) Basophils (%) (Auto) 1 % (0-3) Neutrophils # (Auto) 9.3 x10^3/uL (1.8-7.7) H Lymphocytes # (Auto) 2.8 x10^3/uL (1.0-4.8) Monocytes # (Auto) 1.1 x10^3/uL (0.0-1.1) Eosinophils # (Auto) 0.4 x10^3/uL (0.0-0.7) Basophils # (Auto) 0.1 x10^3/uL (0.0-0.2) Sodium Level 137 mmol/L (136-145) Potassium Level 5.0 mmol/L (3.5-5.1) Chloride Level 102 mmol/L (98-107) Carbon Dioxide Level 26 mmol/L (21-32) Anion Gap 9 (6-14) Blood Urea Nitrogen 18 mg/dL (7-20) Creatinine 1.3 mg/dL (0.6-1.0) H Estimated GFR (Cockcroft-Gault) 41.5 BUN/Creatinine Ratio 14 (6-20) Glucose Level 107 mg/dL (70-99) H Calcium Level 9.2 mg/dL (8.5-10.1) Total Bilirubin 0.4 mg/dL (0.2-1.0) Aspartate Amino Transferase (AST) 31 U/L (15-37) Alanine Aminotransferase (ALT) 24 U/L (14-59) Alkaline Phosphatase 188 U/L (46-116) H Total Protein 7.3 g/dL (6.4-8.2) Albumin 3.4 g/dL (3.4-5.0) Albumin/Globulin Ratio 0.9 (1.0-1.7) L Lipase 70 U/L (73-393) L Laboratory Tests 04/27/21 04:17 Laboratory Tests 04/27/21 04:17 Vital Signs: Vital Signs Date Time Temp Pulse Resp B/P (MAP) Pulse Ox O2 Delivery O2 Flow Rate FiO2 04/27/21 01:15 98.1 137/76 (96) 98.1 EKG: EKG: [] Radiology/Procedures: Radiology/Procedures: [] Course & Med Decision Making: Course & Med Decision Making Pertinent Labs and Imaging studies reviewed. (See chart for details) The patient was able to void her bladder twice in the ER. She reports no further pain. She is feeling much better. She has a benign, nonsurgical abdominal exam. Laboratory evaluation and UA are unremarkable. No indication for urinary catheterization at this time. After her first void of approximately 160 mL of urine, she did have about 500 mL left, though she was able to void her bladder after this. I did discuss all of the findings, differential diagnosis and plan of care. No current indication for imaging at this time, based on current presentation and symptoms. She again has no further abdominal pain at this time. I did discuss that it is possible that she is experiencing some mild urinary retention secondary to side effects of medications. I do recommend she see a urologist, as well as her primary care physician. She feels comfortable with the plan for discharge. I discussed strict return precautions with her. She verbalizes understanding. Felipa Disclaimer: Felipa Disclaimer: This electronic medical record was generated, in whole or in part, using a voice recognition dictation system. Departure Departure Impression: Primary Impression: Urinary urgency Disposition: HOME / SELF CARE / HOMELESS Condition: STABLE Referrals: SARAH MIRANDA III, MD (PCP) Patient Instructions: Urinary Retention, Acute, Female Additional Instructions: Return to the ER for nausea and vomiting, fever of 100.4 or higher, more severe or focal abdominal pain, if you are unable to urinate at all or any other concerns. Your labs are reassuring today, your kidney function is stable. He did not demonstrate any evidence of a urinary tract infection at this time. It is possible that some mild urinary retention is being caused by some of your medications as a side effect. Please contact your primary care physician to discuss this further. CJ MOSS DO Apr 27, 2021 04:59
[2021-04-27 05:09] VITALS: BP 145/71
== END 2021-04-27 05:51 | disposition home or self-care (01) ==
LOC: ER 22:13
DX: R39.15 Urgency of urination (principal); R10.30 Lower abdominal pain, unspecified; R33.9 Retention of urine, unspecified; I11.0 Hypertensive heart disease with heart failure; I50.9 Heart failure, unspecified; I25.2 Old myocardial infarction; E78.00 Pure hypercholesterolemia, unspecified; E11.9 Type 2 diabetes mellitus without complications; Z90.49 Acquired absence of other specified parts of digestive tract; Z95.0 Presence of cardiac pacemaker; Z88.2 Allergy status to sulfonamides; Z88.1 Allergy status to other antibiotic agents; Z88.8 Allergy status to other drugs, medicaments and biological substances
CPT/HCPCS: 36415; 80053; 81001; 83690; 85025; 99285-25